=== PATIENT | male | born 1985 | race Caucasian/White ===

== ENCOUNTER 2019-06-02 18:24 | Emergency (ER) | payer SELFPAY ==
[~2019-06-02] VITALS: Ht 172.7 cm; Wt 78.0 kg
[2019-06-02] MEDS ORDERED: KETOROLAC 30MG/ML VIAL IM ONE (21:15)
[2019-06-02 23:24] VITALS: BP 121/84
== END 2019-06-02 23:30 | disposition home or self-care (01) ==
LOC: ER 18:24
DX: S93.401A Sprain of unspecified ligament of right ankle, initial encounter (principal); M79.631 Pain in right forearm; W17.89XA Other fall from one level to another, initial encounter; Y93.39 Activity, other involving climbing, rappelling and jumping off; Y92.89 Other specified places as the place of occurrence of the external cause; Y99.8 Other external cause status
CPT/HCPCS: 29515; 73090; 73610; 73630; 96372; 99283; J1885